=== PATIENT | female | born 1940 | race Caucasian/White ===

== ENCOUNTER → 2019-01-24 | Outpatient (CLI) | payer OTHER, BC ==
[~2019-01-24] VITALS: Ht 154.9 cm; Wt 65.8 kg
[~2019-01-24] MED LIST: ASA81BEC PO; CALCIUM W/VIT1 EACH PO; CARAFATE 1 GM TA1 G1 PO; CRESTOR20 MG PO; DITROPAN XL5 MG PO; GLUCOPHAGE XR500 MG PO; HYDROCHLOROTH12.5 M1 PO; HYDROCODONE-APA1 TA1 PO; LEVOTHYROXIN0.075 MG PO; LISINOPRIL20 MG PO; MULTIVITAMINS1 EAC7 PO
--- NOTE | 2019-01-28 11:53 | P ---
[facility] [place] [address] PROCEDURE REPORT Name: KRYSTINA HUNT [facility] [id number] Admission: 01/24/19 Attend Phys: Amandeep Abebe MD Discharge: Date of : 42 Report #: [id number] THIS REPORT FOR: //name// CC: Oh Major OUTPATIENT COLONOSCOPY BRIEF HISTORY: The patient is a 78-year-old woman with a history of 16 adenomas in the past for high risk screening colonoscopy. PREOPERATIVE DIAGNOSIS: High risk screening colonoscopy. POSTOPERATIVE DIAGNOSES: Mild to moderate left-sided diverticulosis coli. MEDICATIONS: Deep sedation with propofol per anesthesia. SPECIMEN: None. ESTIMATED BLOOD LOSS: None. PROCEDURE: Colonoscopy to cecum and terminal ileum. FINDINGS: Prior to propofol sedation, procedure of colonoscopy discussed with the patient as well as potential risks and its complications. She indicates she understands and desires to proceed. DESCRIPTION OF PROCEDURE: With the patient in left lateral decubitus position, digital examination was completed, which revealed no abnormalities. Subsequently, the Olympus video colonoscope was introduced in the rectum and advanced under direct vision to the cecum. Done with minimal difficulty. Cecum was identified by the ileocecal valve and the appendiceal orifice. I was able to visualize the distal segment of terminal ileum, which was inspected and noted to be unremarkable. At that point, the scope was slowly withdrawn and careful circumferential views obtained. Upon slow withdrawal of the scope, the prep was excellent. The mucosa was within normal limits, normal vascular pattern, and normal light reflex. As we withdrew the scope through the colon, no neoplastic lesions were seen on this examination today. A few diverticula were seen in the sigmoid colon. There was no endoscopic evidence of diverticulitis. No abnormalities were noted all the way into the rectum. Upon retroflexion, no abnormalities were noted. Scope was withdrawn. The patient tolerated the procedure well. CONDITION OF THE PATIENT UPON DISCHARGE: Following procedure, the patient drowsy, aroused, conversant, and will be discharged home when fully ambulatory. [address] [address] PROCEDURE REPORT Name: BECKYJAYKRYSTINA R Room #: [facility].#: [id number] Admission: 01/24/19 Attend Phys: Amandeep Abebe MD Discharge: Date of : 42 Report #: [id number] INSTRUCTIONS TO THE PATIENT AND FAMILY AT THE TIME OF DISCHARGE: No neoplastic lesions were seen on today's exam. However, in view of the fact she has a history of 16 adenomas lifetime, I suggest she return in 3 years for followup colonoscopy. She will otherwise return to the care of Dr. Oh Geiger and return to see me as needed. Last colonoscopy was 3 years ago. Withdrawal time from the cecum was 10 minutes 10 seconds. <ELECTRONICALLY SIGNED> By: Amandeep Abebe MD 01/28/19 1153 [id number] Amandeep Abebe MD /miguel
== END | disposition home or self-care (01) ==
LOC: GI 09:44
DX: Z12.11 Encounter for screening for malignant neoplasm of colon (principal); Z86.010 Personal history of colon polyps; K57.30 Diverticulosis of large intestine without perforation or abscess without bleeding; I10 Essential (primary) hypertension; E78.5 Hyperlipidemia, unspecified; E03.9 Hypothyroidism, unspecified; Z87.891 Personal history of nicotine dependence; Z87.442 Personal history of urinary calculi; Z96.651 Presence of right artificial knee joint; Z90.49 Acquired absence of other specified parts of digestive tract; Z98.890 Other specified postprocedural states; Z79.899 Other long term (current) drug therapy; Z79.82 Long term (current) use of aspirin
CPT/HCPCS: 62110; 62900